=== PATIENT | male | born 1975 | race Caucasian/White ===

== ENCOUNTER 2019-03-26 10:51 | Outpatient (CLI) | payer OTHER ==
[2019-03-27 19:04] VITALS: BP 110/70
--- NOTE | 2019-03-27 19:04 | SLEEP CARE CONSULTATION ---
Information from patient questionnaire entered by Nikia Casas. I have reviewed and concur with the information entered by Nikia Casas. This document represents the service I personally performed and the decisions made by me, Usha Gordon MD, [facility]. History of Present Illness Reason for Visit: New patient Chief Complaint: reports: Insomnia, Unrefreshed sleep, Snoring, Excessive daytime sleepiness, Observed pauses in breathing, Frequent awakenings at night Duration of Symptoms: OVER 10 YEARS Usual bedtime: 10:00 Time it takes to fall asleep: 20-30 Snores at night: Yes Observed to quit breathing while asleep: Yes Sleeps alone due to snoring: No Number of times waking at night: 3-4 Reasons for waking at night: reports: Snoring, Pain, Bathroom Toss, Turn, or Twitch while sleeping: Yes Recalls having dreams: Yes Usually gets out of bed at: 6:30 Feels refreshed in the morning: No Morning headache: No Sleepy or fatigued during the day: Yes Ever fallen asleep while driving: No Takes day naps: Yes Dreams during day naps: Yes Prior sleep studies: No Additional HPI information: 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 As you know, he is a 43 year old gentleman who complains of loud snore, observed apneas, frequent awakenings, unrefreshed sleep, and excessive daytime sleepiness for the past 10 years. He has had hypertension since he was 34 years old. The patient tells me that he normally goes to bed around 10 pm, and it takes him approximately just a few minutes to fall asleep. He tries to sleep on his side where he snores less loudly. His can still sleep in the same bed. He can recall waking up on the average of 3 - 4 times during the night. Most of the time he wakes up because of having to use the bathroom and pain. He has awakened occasionally because of his own snoring, choking, and having to gasp for air. There is a lot of tossing and turning in his sleep. No somniloquy (sleep talking) or somnambulism (sleep walk ing). Generally, he can recall having dreams. In the morning he usually gets up out of the bed around 6:30 a.m. not feeling refreshed nor rested. He usually does not have a morning headache. During the day he complains of feeling sleepy and fatigued. His score on [place] Sleepiness Scale is 15 out of 24. He has never fallen asleep while driving nor has had any accident due to sleepiness. He usually takes naps during the day. Upon falling asleep during the day he reports having dreams. He has never had sleep paralysis, experienced cataplexy or symptoms of restless leg syndrome. He denies having impaired concentration during the day. Subjective Initial [place] Sleepiness Scale score: 15 Past Medical History Past Medical History: reports: Hypertension Social History The patient's occupation is a AM. Patient is and lives in [place]. Have you smoked in the past 12 months: No Alcohol use: No Caffeine use: Yes Caffeine amount and frequency: 2-3 DRINKS/DAY Family History Family history of sleep disordered breathing: Yes Family Hx Sleep Apnea: Father: Snoring, Sibling: Snoring Allergies and Home Medications Known drug allergies: No Home medication list reviewed: Yes (telmasartan) Review of Systems Weight gain over past 5 years: 10-15 Weight loss over past 5 years: 10 Cardiovascular: reports: high blood pressure Respiratory: denies: shortness of breath, wheeze, sputum production, chronic cough, other Gastrointestinal: denies: heartburn, difficulty swallowing, nausea, vomitting, diarrhea, abdominal pain, other Urinary: denies: incontinence, frequency, urgency, impotence, other Neurological: denies: headaches, seizure, head trauma, disorientation, speech dysfunction, gait or balance problems, fainting or unconsciousness, other Psychiatric: reports: anxiety Ear/Nose/Throat: denies: nasal congestion, sinus problems, nose bleeds, dry mouth/throat, hoarseness, injury to nose, tonsillectomy, wisdom teeth removed, other Endocrine: denies: thyroid disease, history of goiter, sluggishness, too hot or cold, excessive thirst, increased appetite, increased urination, unexplained weakness, other Musculoskeletal: denies: joint pain, neck pain, back pain, joint swelling, muscle pain or cramping, mobility problems, other Physical Exam Vital signs obtained and entered by: Dr. Gordon Blood Pressure: 110/70 Heart Rate: 66 O2 Saturation: 97 Height: 5 ft 9 in Weight (kg): 204 lb Body Mass Index: 30.1 BMI Classification: Class 1 Neck circumference: 16 HEENT: No craniofacial malformation Nostrils: patent to airflow Turbinates: normal Septum: midline Mouth and throat: narrow oropharynx Soft palate: normal Hard palate: normal Uvula: normal Uvula visualization: 100% Mallampati Class I Tongue: enlarged in size with teeth nevarez on lateral edges Tonsils: small Chin and jaw: normal size and position Neck: normal w/o lymphadenopathy or thyromegaly Heart: regular rate and rhythm Lungs: clear bilaterally Extremities: no edema or clubbing Neurologic: intact Impression and Plan IMPRESSION: 1. Obstructive Sleep Apnea-Hypopnea Syndrome, as suggested by history of loud and irregular snoring, observed cessation of breath while asleep, frequent awakenings during the night, unrefreshed sleep, and daytime hypersomnolence. Narrow oropharynx and obesity are common predisposing factors for obstructive sleep apnea-hypopnea syndrome. Untreated obstructive sleep apnea can also cause hypertension. Pathophysiology of sleep-disordered breathing was discussed. I recommend proceeding to polysomnography to confirm the diagnosis and to assess severity. If he has significant sleep disordered breathing, a manual CPAP titration study will also be performed to find the optimal treatment pressure. I informed the patient of what the sleep studies involve and after some discussion, he agreed to proceed. Plan: 1. Schedule polysomnography + manual CPAP titration study and return in 1 to 2 weeks after the study to discuss result and initiate therapy. 2. Avoid long distance driving or when feeling sleepy. 3. Avoid alcohol, sedative and muscle relaxant around bedtime. 4. Attempt to lose weight. I spent 100% of this 15 minute visit face to face with the patient with greater than 50% of this was spent time counseling the patient and coordination of care.
== END 2019-03-26 10:52 | disposition home or self-care (01) ==
LOC: SC 10:51
PROVIDERS: ATTEND Internal Medicine Pulmonary Disease
DX: R06.83 Snoring (principal); R06.81 Apnea, not elsewhere classified; G47.8 Other sleep disorders; G47.10 Hypersomnia, unspecified
CPT/HCPCS: 99203; 99212

== ENCOUNTER 2019-05-19 20:31 | Outpatient (CLI) | payer OTHER | END 2019-05-19 20:32 | disposition home or self-care (01) | LOC: SC 20:31 | PROVIDERS: ATTEND Internal Medicine Pulmonary Disease | DX: G47.33 Obstructive sleep apnea (adult) (pediatric) (principal) | CPT/HCPCS: 95810 ==

== ENCOUNTER 2019-05-30 09:11 | Outpatient (CLI) | payer OTHER ==
--- NOTE | 2019-05-30 10:33 | SLEEP CARE CONSULTATION ---
Information from patient questionnaire entered by Claribel Vernon. I have reviewed and concur with the information entered by Claribel Vernon. This document represents the service I personally performed and the decisions made by me, Mar Hines RN, MSN, [employer]. History of Present Illness Initial [place] Sleepiness Scale score: 15 Current [place] Sleepiness Scale score: 14 Additional HPI information: DES PETERSON returns for follow up of the recently performed polysomnography and informed of the findings. I explained the pathophysiology behind obstructive sleep apnea. We then spent quite a bit of time discussing different treatment options. For mild obstructive sleep apnea, surgery and oral appliance are alternatives to nasal CPAP therapy but in moderate or severe cases, nasal CPAP is the most effective and reliable treatment. Because apnea is primarily in supine position, then positional management therapy could be effective. Methods discussed such as positioning with pillows, using a T-shirt with tennis balls in the back, and shown commercial products that have a pillow format on back to prevent supine sleep. I reviewed the impact of weight changes on sleep apnea and strongly recommended losing weight. After some discussion, the patient opted to go with the nasal CPAP therapy. Nasal autoCPAP set at [id number] will be ordered with rationale explained. A manual titration study will be ordered if unable to find optimal pressure with office adjustments. I explained how CPAP machine works with sample devices RespirAdwanteds Dreamstation and Cognia [id number] and what to expect when using the machine. Using CPAP every night in order to get used to it was emphasized. Patient advised to put CPAP mask on before getting into bed so as not to fall asleep without CPAP. To assist acclimation to CPAP use, it could also be used for a short time during day while reading or watching TV. The patient was instructed to call the CPAP supplier to discuss any mechanical problem that may occur. If the mask given is uncomfortable or is difficult to keep on through the night even with adjustment, contact the CPAP supplier as many will replace with another mask style if notified before 30 days. If snoring or perceives is not getting enough air or too much air from the machine, notify this office. [facility] patient education PAP tips reviewed and given to patient. Patient counseled not drink alcohol less than 4 hours before bedtime as it can increase snoring and apnea. Patient was cautioned about risks of drowsy driving until sleepiness symptoms resolve. Patient denies drowsy driving. [facility] patient education on snoring and sleep apnea given and reviewed. Sleep Study - Polysomnography Polysomnography findings: The quality of the study is good. The patient had normal sleep efficiency. The sleep architecture was abnormal for sleep fragmentation and reduced amount of time spent in slow wave sleep (N3). Respiratory monitoring showed mild obstructive sleep apnea-hypopnea (AHI = 6.4) associated with frequent arousals, oxyhemoglobin desaturation and mild hypoxia (steffany oxygen saturation of 88%). The respiratory events occurred almost exclusively during supine sleep (supine AHI = 15.8; non-supine = 0.72). Snore was light in intensity. There was no significant periodic leg movement of sleep. Cardiac rhythm was normal sinus rhythm without significant arrhythmia. No abnormal behavior (parasomnia) observed during the night. Allergies and Home Medications Known drug allergies: No Allergy and home medication list: tarmisartan 40mg daily Review of Systems Review of systems same as previous: Yes Physical Exam Blood Pressure: 130/76 Cuff size: long Heart Rate: 98 O2 Saturation: 52 Height: 5 ft 9 in Weight: 211 lb Body Mass Index: 31.1 BMI Classification: Obesity Class 1 Impression and Plan 1. Obstructive Sleep Apnea-Hypopnea Syndrome, mild, with lowest oxygen saturation of 88%. Obviously this is the cause of the patients symptoms of unrefreshed sleep, and excessive daytime sleepiness. Positive pressure therapy could benefit his hypertension. As mentioned above, the patient will be started on nasal autoCPAP therapy with pressure set at 4-15 cmH2O. A manual titration study will be completed if unable to find optimal treatment pressure with office adjustments. Compliance guidelines also reviewed. A copy of compliance guidelines will be given for reference at check out. Because the apnea is more severe supine, I instructed to avoid sleeping supine using pillow positioning until able to start CPAP use. * Nasal auto CPAP therapy, pressure at 4-15 cm H2O. - Respironics device preferred. * Attempt to lose weight. * Avoid alcohol consumption near bedtime. * Avoid supine sleep until using CPAP. * The patient is again cautioned about driving until sleepiness completely resolves. * Return one month after CPAP obtained. I will assess response to therapy and compliance at that time. I spent 100% of this 30 minute visit face to face with the patient with greater than 50% of this was spent time counseling the patient and coordination of care.
[2019-05-30 10:34] VITALS: BP 130/76
== END 2019-05-30 09:12 | disposition home or self-care (01) ==
LOC: SC 09:11
PROVIDERS: ATTEND Nurse Practitioner Family
DX: G47.33 Obstructive sleep apnea (adult) (pediatric) (principal); E66.9 Obesity, unspecified; Z68.31 Body mass index [BMI] 31.0-31.9, adult
CPT/HCPCS: 99212; 99214

== ENCOUNTER 2019-09-25 13:11 | Outpatient (CLI) | payer OTHER ==
--- NOTE | 2019-09-25 16:01 | SLEEP CARE CONSULTATION ---
Information from patient questionnaire entered by Nikia Casas. I have reviewed and concur with the information entered by Nikia Casas. This document represents the service I personally performed and the decisions made by me, Usha Gordon MD, [facility]. History of Present Illness Previous diagnosis: Mild, Obstructive Sleep Apnea-Hypopnea Syndrome AHI: 6.4 Reason for follow up: first compliance Equipment type: CPAP Equipment obtained from: [employer] Mask style: Nasal Mask brand: Respironics Prior sleep studies: Yes HPI additional information: HPI: Mr. Herrera returned today for follow up of nasal CPAP therapy. He was diagnosed to have mild obstructive sleep apnea-hypopnea syndrome. The patient wears a nasal mask. He reports using the device sparingly. The compliance report shows usage in 23 nights out of the past 90 nights, averaging 2.3 hours a night. The > 4 hour compliance rate for the past 30 days is 4.4%. He complained of nasal congestion but no particular problem with the device such as soreness on the face, dry nose, epistaxis, or headache. He thinks that the pressure is too low and feels suffocated on it. He has not noticed any improvement yet. His notices no snore at all through the CPAP. The average residual AHI is 1.8; and average time in large leak per day is 1 minute. The 90th percentile pressure is 5.6 cmH2O. CPAP Compliance Data - Data Reviewed with Patient Average duration of nightly device use: 2h 22m Compliance rate %: 4.4 (compliance period) Current pressure setting (cmH2O): 4-15 Humidity settin Heated hose settin Average residual AHI: 1.8 Average large leak: 1m 13s Subjective Patient concerns: reports: mask discomfort, nasal congestion, other (air hunger) Initial [place] Sleepiness Scale score: 15 Current [place] Sleepiness Scale score: 16 Allergies and Home Medications Drug allergies reviewed: Yes (NKDA) Home medication list reviewed: Yes (none) Review of Systems Review of systems same as previous: Yes Physical Exam Height: 5 ft 9 in Weight: 210 lb Body Mass Index: 31.0 BMI Classification: Obese Impression and Plan IMPRESSION: 1. Obstructive Sleep Apnea-Hypopnea Syndrome, mild, with the patient unable to use the CPAP because he feels suffocated on it. He would like the pressure turned up. No other problems. I will raise the starting pressure to 6 cmH2O. He was advised to disable the ramp. PLAN: 1. Set autoCPAP at 6-15 cmH2O. 2. Try to lose weight 3. Return for a follow up in one month. I spent 100% of this visit face to face with the patient with greater than 50% of this was spent time counseling the patient and coordination of care.
== END 2019-09-25 13:12 | disposition home or self-care (01) ==
LOC: SC 13:11
PROVIDERS: ATTEND Internal Medicine Pulmonary Disease
DX: G47.33 Obstructive sleep apnea (adult) (pediatric) (principal); E66.9 Obesity, unspecified; Z68.31 Body mass index [BMI] 31.0-31.9, adult
CPT/HCPCS: 99212; 99213

== ENCOUNTER 2021-01-22 08:17 | Outpatient (CLI) | payer OTHER ==
--- NOTE | 2021-01-22 12:43 | MRI Report ---
PROCEDURE: Knee LT W/O INDICATIONS: PAIN IN LEFT KNEE TECHNIQUE: Noncontrast sagittal PD fast spin echo and T2 fast spin echo with fat saturation, sagittal 3-D gradie nt sequence with fat saturation; coronal T1 spin echo and PD fast spin echo with fat saturation, and axial PD fast spin echo with fat saturation through the knee. COMPARISON: None. FINDINGS: Menisci: Medial meniscus: Intact. Lateral meniscus: Intact. Cruciate ligaments: Anterior cruciate ligament: Intact. Posterior cruciate ligament: Intact. Medial structures: The medial collateral ligament appears intact. The semimembranosus tendon appears intact. Visualized portions of the pes anserinus tendons appear normal. No abnormal bursal fluid. Lateral structures: There is mild thickening and internal signal change of the proximal lateral collateral ligament, whic h is technically age indeterminate. Biceps femoris tendon appears intact. Iliotibial band within norm al limits. Popliteus tendon within normal limits. Anterior structures: Mild patellar tendinopathy, with prepatellar and superficial infrapatellar edema. Mild quadriceps tendinopathy of the distal attachment. Medial and lateral patellofemoral ligaments appear grossly intact. Patellar alignment is normal. Hoffa's fat pad unremarkable. There is minimal fluid in the deep infrapatellar recess. Bones and cartilage: Bones: No bone marrow contusions or fractures. There is presumed fluid within a meniscosynovial reces s on image 19/901 adjacent to the body of the lateral meniscus, favored over parameniscal cyst. Medial compartment: Mild surface fraying without focal cartilage defect. Lateral compartment: Mild surface fraying without focal cartilage defect. Patellofemoral compartment: Diffuse surface fraying of the patellar and femoral trochlear cartilage. Joint space: Moderate joint effusion. Valdovinos's cyst measuring approximately 3 cm in the cephalocaudad dimension. No specific evidence of loose body identified. IMPRESSION: Moderate joint effusion. Distal quadriceps tendinopathy Diffuse patellar tendinopathy Mild joint degeneration. Small Valdovinos's cyst Reviewed by: Connor Graves MD on 01/22/2021 12:42 PM PDT Approved by: Connor Graves MD on 01/22/2021 12:42 PM PDT Station ID: [id number]
== END 2021-01-22 08:18 | disposition home or self-care (01) ==
LOC: DI 08:17
PROVIDERS: ATTEND Orthopaedic Surgery
DX: M25.462 Effusion, left knee (principal); M17.12 Unilateral primary osteoarthritis, left knee; M67.864 Other specified disorders of tendon, left knee; M71.22 Synovial cyst of popliteal space [Baker], left knee

== ENCOUNTER 2021-11-04 08:21 | Outpatient (CLI) | payer OTHER ==
[2021-11-04] MEDS ORDERED: GADOBUTROL 7.5 MMOL/7.5 ML VIAL ONE (09:09)
[2021-11-04] MEDS ORDERED: GADOBUTROL 7.5 MMOL/7.5 ML VIAL IVP ONE (11:33)
--- NOTE | 2021-11-04 14:30 | MRI Report ---
PROCEDURE: Cervical Spine W/WO INDICATIONS: MONONEUROPATHY, CERVICALGIA CONTRAST: IV CONTRAST: Gadavist ml: 6 TECHNIQUE: Noncontrast sagittal T1 spin echo and T2 fast spin echo, sagittal STIR, sagittal PD fast spin echo, f oraminal oblique sagittal T2 fast spin echo, axial gradient echo or T2 fast spin echo through the cer vical spine. After the administration of contrast, sagittal and axial T1 spin echo with fat saturati on through the cervical spine. COMPARISON: None. FINDINGS: Image quality: Excellent. Alignment and curvature: There is normal bony alignment. Marrow: Degenerative endplate changes noted, mild Spinal cord: Visualized spinal cord is normal in size, without white matter lesions. No suspicious intramedullary enhancement. No cerebellar tonsillar herniation. Paraspinous soft tissues: No paravertebral masses or suspicious enhancement. C2-C3: Disc height is preserved. No central or foraminal stenosis C3-C4: Disc height is preserved. No central or foraminal stenosis. C4-C5: Mild disc space narrowing and posterior disc bulge without central stenosis. No foraminal zafar nosis. C5-C6: Mild disc space narrowing and hypertrophic uncovertebral joints. No central stenosis. Moderat e left and no right foraminal stenosis C6-C7: Disc space narrowing with posterior disc osteophyte complex results in mild central stenosis slightly eccentric to the left. Moderate right and mild left foraminal stenosis. C7-T1: Disc height is preserved. No central or foraminal stenosis. IMPRESSION: 1. Multilevel degenerative disc disease and arthropathy results in varying degrees of central and for aminal stenosis including mild central and moderate right foraminal stenosis at C6-7. Reviewed by: Angelito Villarreal MD on 11/04/2021 1:28 PM CEDRIC Approved by: Angelito Villarreal MD on 11/04/2021 1:28 PM AKDT Station ID: [id number]
== END 2021-11-04 08:22 | disposition home or self-care (01) ==
LOC: DI 08:21
PROVIDERS: ATTEND Family Medicine
DX: G56.92 Unspecified mononeuropathy of left upper limb (principal); M47.812 Spondylosis without myelopathy or radiculopathy, cervical region; M50.321 Other cervical disc degeneration at C4-C5 level; M48.02 Spinal stenosis, cervical region
CPT/HCPCS: 72156; A9585